=== PATIENT | female | born 1970 | race Caucasian/White ===

== ENCOUNTER 2016-09-19 07:34 | Emergency (ER) | payer BC ==
[~2016-09-19] VITALS: Ht 157.5 cm; Wt 112.9 kg
[~2016-09-19 07:34] MED LIST: CANA300T PO; GLYB5TAB3 PO; LISI10TA2 PO; METF10002 PO; PIOG30TA20 PO; SIMV10TA3 PO; SULF1TAB24 PO
[2016-09-19] MEDS ORDERED: IV NORMAL SALINE 1000ML BAG 1,000 ML IV SCH (08:04)
[2016-09-19 08:28] LABS: CREATININE 0.7 mg/dL (0.6-1.0); GFR 89.7; POTASSIUM 4.4 mmol/L (3.5-5.1)
[2016-09-19] MEDS ORDERED: ONDA4TAB10 SL (08:43)
--- NOTE | 2016-09-19 08:43 | PHYS DOC ---
Past Medical History Past Medical History: Asthma, Diabetes-Type II, High Cholesterol, Hypertension , Pancreatitis, Other Additional Past Medical Histor: neuropathy, HERPES SIMPLEX II Past Surgical History: Cholecystectomy, , Tubal ligation Additional Information: quit 2007 Alcohol Use: None Drug Use: None Adult General Chief Complaint Chief Complaint: NAUSEA/VOMITING/DIARRHA HPI HPI Patient is a 46 year old female who presents with nausea, vomiting, and diarrhea that started overnight. States has few episodes of nonbloody nonbilious emesis and a few episodes of watery, nonbloody diarrhea. She denies abdominal pain. She has dizziness with standing for the past week. She has not taken any of her blood pressure or diabetes medications over the past month. She plans to see her primary care doctor this week for this. She denies fever or chills, dysuria, cough, dyspnea, chest pain, diaphoresis, vision changes, numbness, tingling, weakness. Review of Systems Review of Systems Constitutional: Denies fever or chills [] Eyes: Denies change in visual acuity, redness, or eye pain [] HENT: Denies nasal congestion or sore throat [] Respiratory: Denies cough or shortness of breath [] Cardiovascular: No additional information not addressed in HPI [] GI: Denies abdominal pain, bloody stools [] : Denies dysuria or hematuria [] Musculoskeletal: Denies back pain or joint pain [] Integument: Denies rash or skin lesions [] Neurologic: Denies headache, focal weakness or sensory changes [] Endocrine: Denies polyuria or polydipsia [] Current Medications Current Medications Current Medications Medications (Trade) Dose Ordered Sig/Chana Start Time Stop Time Status Last Admin Dose Admin Meclizine HCl (Antivert) 12.5 mg 1X ONCE 09/19/16 08:45 09/19/16 08:46 09/19/16 08:20 12.5 MG Ondansetron HCl (Zofran) 4 mg 1X ONCE 09/19/16 08:45 09/19/16 08:46 09/19/16 08:18 4 MG Sodium Chloride (Iv Sodium Chloride 0.9% 1000ml Bag) 1,000 ml @ 1,000 mls/hr Q1H 09/19/16 08:04 09/19/16 09:03 09/19/16 08:17 1,000 MLS/HR Allergies Allergies Allergies Coded Allergies Type Severity Reaction Last Updated Verified aspirin Allergy Intermediate "STOMACH BLEEDS" 09/06/15 Yes iodine Allergy Intermediate 09/06/15 Yes Physical Exam Physical Exam Constitutional: Well developed, well nourished, no acute distress, non-toxic appearance. [] HENT: Normocephalic, atraumatic, bilateral external ears normal, oropharynx moist, nose normal. [] Eyes: PERRLA, EOMI. [] Neck: Normal range of motion, supple. [] Cardiovascular: Regular tachycardia [] Lungs & Thorax: Bilateral breath sounds clear to auscultation [] Abdomen: Bowel sounds normal, soft, no tenderness. [] Skin: Warm, dry, no erythema, no rash. [] Back: No tenderness, no CVA tenderness. [] Extremities: No tenderness, ROM intact, no edema. [] Neurologic: Alert and oriented X 3, normal motor function, normal sensory function, no focal deficits noted. [] Psychologic: Affect normal, judgement normal, mood normal. [] Current Patient Data Vital Signs Vital Signs Date Time Temp Pulse Resp B/P Pulse Ox O2 Delivery O2 Flow Rate FiO2 09/19/16 08:21 108 14 128/71 93 Room Air 09/19/16 07:48 98.7 98.7 Lab Values Laboratory Tests Test 09/19/16 08:05 Sodium Level 137mmol/L (136-145) Potassium Level 4.4mmol/L (3.5-5.1) Chloride Level 98mmol/L (98-107) Carbon Dioxide Level 25mmol/L (21-32) Anion Gap 14 (6-14) Blood Urea Nitrogen 19mg/dL (7-20) Creatinine 0.7mg/dL (0.6-1.0) Estimated GFR (Cockcroft-Gault) 89.7 Glucose Level 470mg/dL (70-99) H Calcium Level 9.0mg/dL (8.5-10.1) Laboratory Tests 09/19/16 08:05 Course & Med Decision Making Course & Med Decision Making Pertinent Labs and Imaging studies reviewed. (See chart for details) Laboratory evaluation is unremarkable. HR is improved with IVFs. She is feeling better after medications. Return precautions given. She understands and agrees with plan. Dragon Disclaimer Dragon Disclaimer This electronic medical record was generated, in whole or in part, using a voice recognition dictation system. Departure Departure Impression: Primary Impression: Nausea vomiting and diarrhea Additional Impression: Hyperglycemia due to type 2 diabetes mellitus Disposition: 01 HOME, SELF-CARE Condition: STABLE Referrals: LEXII MERCER MD (PCP) Patient Instructions: Nausea and Vomiting, [id number] Additional Instructions: Take zofran as needed for nausea. Follow up with your primary care doctor. Return for any concerns. Scripts Ondansetron (Zofran Odt)4 Mg Tab.rapdis1 Tab SL Q8HRS #10 TAB Prov:Willem GEORGE MD 09/19/16 Problem Qualifiers Additional Impression: Hyperglycemia due to type 2 diabetes mellitus Diabetes mellitus intermediate manager insulin use: without intermediate manager use Qualified Code : E11.65 - Type 2 diabetes mellitus with hyperglycemia Willem GEORGE MD Sep 19, 2016 08:43
[2016-09-19] MEDS ORDERED: ONDANSETRON PF 4 MG/2 ML VIAL. IV ONE (08:45)
[2016-09-19] MEDS ORDERED: MECLIZINE HCL 12.5 MG TABLET. PO ONE (08:45)
[2016-09-19 09:30] VITALS: BP 128/69
== END 2016-09-19 09:31 | disposition home or self-care (01) ==
LOC: ER 07:34
DX: R11.2 Nausea with vomiting, unspecified (principal); R19.7 Diarrhea, unspecified; E11.65 Type 2 diabetes mellitus with hyperglycemia; R42 Dizziness and giddiness; E11.40 Type 2 diabetes mellitus with diabetic neuropathy, unspecified; I10 Essential (primary) hypertension; E78.00 Pure hypercholesterolemia, unspecified; J45.909 Unspecified asthma, uncomplicated; Z87.19 Personal history of other diseases of the digestive system; Z90.710 Acquired absence of both cervix and uterus; Z90.49 Acquired absence of other specified parts of digestive tract; Z98.51 Tubal ligation status; Z88.6 Allergy status to analgesic agent; Z91.041 Radiographic dye allergy status
CPT/HCPCS: 36415; 80048; 96361; 96374; 99284; J2405; J7030; J8597

== ENCOUNTER 2020-10-10 13:46 | Emergency (ER) | payer BC, OTHER ==
[~2020-10-10] VITALS: Ht 157.5 cm; Wt 105.5 kg
[~2020-10-10 13:46] MED LIST changes: +LISI10TA16 PO; -LISI10TA2 PO; -METF10002 PO; +METF10007 PO; +ONDA4TAB10 SL; -PIOG30TA20 PO; +PIOG30TA41 PO; +SIMV10TA15 PO; -SIMV10TA3 PO
--- NOTE | 2020-10-10 15:59 | PHYS DOC ---
Past Medical History Past Medical History: Asthma, Diabetes-Type II, High Cholesterol, Hypertension, Pancreatitis, Other Additional Past Medical Histor: neuropathy, HERPES SIMPLEX II Past Surgical History: Cholecystectomy, , Tubal ligation Smoking Status: Former Smoker Alcohol Use: None Drug Use: None General Adult EDM: Chief Complaint: ASTHMA HPI: HPI: Patient is a 50 year old female who presented to ER due to trouble breathing with fever and chill. Patient had her second Covid vaccines shot 2 days ago, she started having the symptoms since yesterday. Patient denies any chest pain, no headache, no nausea vomiting. Patient has history of diabetic, hypertension, asthma. Patient had taken her home medication but wanted to check to make sure that she is okay. Review of Systems: Review of Systems: Constitutional: Denies fever or chills. [] Eyes: Denies change in visual acuity. [] HENT: Denies nasal congestion or sore throat. [] Respiratory: Positive for cough and trouble breathing. Cardiovascular: Denies chest pain or edema. [] GI: Denies abdominal pain, nausea, vomiting, bloody stools or diarrhea. [] : Denies dysuria. [] Musculoskeletal: Positive for back pain and joint pain. Integument: Denies rash. [] Neurologic: Denies headache, focal weakness or sensory changes. [] Endocrine: Denies polyuria or polydipsia. [] Lymphatic: Denies swollen glands. [] Psychiatric: Denies depression or anxiety. [] Heart Score: C/O Chest Pain: N/A Risk Factors: Risk Factors: DM, Current or recent (<one month) smoker, HTN, HLP, family history of CAD, obesity. Risk Scores: Score 0 - 3: 2.5% MACE over next 6 weeks - Discharge Home Score 4 - 6: 20.3% MACE over next 6 weeks - Admit for Clinical Observation Score 7 - 10: 72.7% MACE over next 6 weeks - Early Invasive Strategies Allergies: Allergies: Allergies Coded Allergies Type Severity Reaction Last Updated Verified aspirin Allergy Intermediate "STOMACH BLEEDS" 09/06/15 Yes iodine Allergy Intermediate 09/06/15 Yes Physical Exam: PE: Constitutional: Well developed, well nourished, no acute distress, non-toxic appearance. [] HENT: Normocephalic, atraumatic, bilateral external ears normal, oropharynx moist, no oral exudates, nose normal. [] Eyes: PERRLA, EOMI, conjunctiva normal, no discharge. [] Neck: Normal range of motion, no tenderness, supple, no stridor. [] Cardiovascular:Heart rate regular rhythm, no murmur [] Lungs & Thorax: Bilateral breath sounds clear to auscultation [] Abdomen: Bowel sounds normal, soft, no tenderness, no masses, no pulsatile masses. [] Skin: Warm, dry, no erythema, no rash. [] Back: No tenderness, no CVA tenderness. [] Extremities: No tenderness, no cyanosis, no clubbing, ROM intact, no edema. [] Neurologic: Alert and oriented X 3, normal motor function, normal sensory function, no focal deficits noted. [] Psychologic: Affect normal, judgement normal, mood normal. [] Current Patient Data: Vital Signs: Vital Signs Date Time Temp Pulse Resp B/P (MAP) Pulse Ox O2 Delivery O2 Flow Rate FiO2 10/10/20 15:03 98.2 108 20 128/79 (95) 97 Room Air 98.2 EKG: EKG: [] Radiology/Procedures: Radiology/Procedures: [][facility] [address] [place] [address] IMAGING REPORT Signed PATIENT: TENA HENRIQUEZ MACCOUNT: [id number] : 1970 LOCATION: ER AGE: 50 SEX: F EXAM STATUS: REG ER ORD. PHYSICIAN: JON MARTIN DO REASON: SOA 7 PROCEDURE: CHEST AP ONLY AP chest x-ray HISTORY: Shortness of breath. COMPARISON: Chest x-ray September 06, 2015. FINDINGS: Heart size normal. Mediastinal silhouette is normal. No pneumothorax, pulmonary opacities or pleural effusions. Slight elevation of the left diaphragm is stable. Bones are unremarkable. IMPRESSION: No acute process. Electronically signed by: Mani Orozco MD (10/10/2020 4:43 PM) [id number] DICTATED and SIGNED BY: MANI OROZCO MD DATE: 10/10/20 [id number] 0 Course & Med Decision Making: Course & Med Decision Making Pertinent Labs and Imaging studies reviewed. (See chart for details) Patient is a 50-year-old female who presented to ER due to body ache, chills, tr ouble breathing, cough after she had her 2nd Covid vaccine 2 days ago. Patient vital signs was normal in the ER, her chest x-ray was normal. Patient was given a breathing treatment in ER, she feel much better. Patient will be discharged home. Dragon Disclaimer: Dragon Disclaimer: This electronic medical record was generated, in whole or in part, using a voice recognition dictation system. Departure Departure Impression: Primary Impression: Viral syndrome Disposition: HOME / SELF CARE / HOMELESS Condition: IMPROVED Referrals: NO PCP (PCP) follow up with your family doctor as needed Patient Instructions: Viral Syndrome Additional Instructions: Thank you for visiting our Emergency Department. We appreciate you trusting us with your care. If any additional problems come up don't hesitate to return to visit us. Please follow up with your primary care provider so they can plan additional care if needed and know about the problem that you had. If symptoms worsen come back to the Emergency Department. Any concerning symptoms that start such as chest pain, shortness of air, weakness or numbness on one side of the body, running high fevers or any other concerning symptoms return to the ER. JON MARTIN DO Oct 10, 2020 15:59
[2020-10-10] MEDS ORDERED: IPRATRPIUM/ALBUTEROL 0.5/2.5MG 3 ML NEBU. NEB ONE (16:00)
--- NOTE | 2020-10-10 16:45 | RAD ---
AP chest x-ray HISTORY: Shortness of breath. COMPARISON: Chest x-ray September 06, 2015. FINDINGS: Heart size normal. Mediastinal silhouette is normal. No pneumothorax, pulmonary opacities o r pleural effusions. Slight elevation of the left diaphragm is stable. Bones are unremarkable. IMPRESSION: No acute process. Electronically signed by: Mani Orozco MD (10/10/2020 4:43 PM) [id number]
[2020-10-10 17:06] VITALS: BP 120/63
== END 2020-10-10 17:08 | disposition home or self-care (01) ==
LOC: ER 13:46
DX: B34.9 Viral infection, unspecified (principal); R50.9 Fever, unspecified; J45.909 Unspecified asthma, uncomplicated; E78.00 Pure hypercholesterolemia, unspecified; I10 Essential (primary) hypertension; K86.1 Other chronic pancreatitis; E11.40 Type 2 diabetes mellitus with diabetic neuropathy, unspecified; Z87.891 Personal history of nicotine dependence; Z90.49 Acquired absence of other specified parts of digestive tract; Z98.51 Tubal ligation status; Z98.890 Other specified postprocedural states; Z91.041 Radiographic dye allergy status; Z88.8 Allergy status to other drugs, medicaments and biological substances
CPT/HCPCS: 71045; 94640; 99283

== ENCOUNTER 2020-12-04 08:42 | Emergency (ER) | payer OTHER ==
[~2020-12-04] VITALS: Ht 157.5 cm; Wt 105.4 kg
[2020-12-04 10:30] LABS: BILIRUBIN,URINE NEGATIVE (NEG); CLARITY,URINE CLEAR; COLOR,URINE YELLOW; NITRITE,URINE NEGATIVE (NEG); PH,URINE 5.5 (<5.0-8.0); PROTEIN,URINE NEGATIVE (NEG-TRACE); UROBILINOGEN,URINE 0.2 mg/dL (0.2 mg/dL)
[2020-12-04] MEDS ORDERED: IV NORMAL SALINE 1000ML BAG 1,000 ML IV SCH (10:30)
[2020-12-04 10:54] LABS: BASO # 0.1 x10^3/uL (0.0-0.2); BASO % 1 % (0-3); EOS # 0.1 x10^3/uL (0.0-0.7); EOS % 1 % (0-3); HEMATOCRIT 41.3 % (36.0-47.0); HEMOGLOBIN 14.5 g/dL (12.0-15.5); LYMPH # 1.9 x10^3/uL (1.0-4.8); LYMPH % 24 % (24-48); MEAN CORPUSCULAR HEMOGLOBIN 32 pg (25-35); MEAN CORPUSCULAR HGB CONC 35 g/dL (31-37); MEAN CORPUSCULAR VOLUME 92 fL (79-100); MONO # 0.3 x10^3/uL (0.0-1.1); MONO % 4 % (0-9); NEUT # 5.6 x10^3/uL (1.8-7.7); NEUT % 70 % (31-73); PLATELET COUNT 289 x10^3/uL (140-400); RED BLOOD COUNT 4.48 x10^6/uL (3.50-5.40); RED CELL DISTRIBUTION WIDTH 12.8 % (11.5-14.5); WHITE BLOOD COUNT 8.1 x10^3/uL (4.0-11.0)
[2020-12-04 10:54] LABS: BACTERIA,URINE FEW /HPF (0-FEW); RBC,URINE 0 /HPF (0-2); WBC,URINE OCC /HPF (0-4)
--- NOTE | 2020-12-04 10:56 | RAD ---
INDICATION: Reason: vomiting / Spl. Instructions: / History: COMPARISON: October 10, 2020 FINDINGS: Single view of chest obtained. Cardiac silhouette is upper limits of normal in size. No definite focal airspace consolidation or pul monary edema. IMPRESSION: * No focal airspace consolidation or edema. Electronically signed by: Binh Millard MD (12/04/2020 10:53 AM) [id number]
[2020-12-04 11:03] LABS: CREATININE 0.7 mg/dL (0.6-1.0); GFR 88.2; POTASSIUM 3.9 mmol/L (3.5-5.1)
[2020-12-04 11:09] LABS: ALBUMIN 3.6 g/dL (3.4-5.0); TOTAL BILIRUBIN 0.7 mg/dL (0.2-1.0); TOTAL PROTEIN 7.2 g/dL (6.4-8.2)
--- NOTE | 2020-12-04 11:32 | PHYS DOC ---
Past Medical History Past Medical History: Asthma, Diabetes-Type II, High Cholesterol, Hypertension, Pancreatitis, Other Additional Past Medical Histor: neuropathy, HERPES SIMPLEX II Past Surgical History: Cholecystectomy, , Tubal ligation Smoking Status: Former Smoker Alcohol Use: Occasionally Drug Use: None General Adult EDM: Chief Complaint: NAUSEA/VOMITING/DIARRHEA HPI: HPI: Patient is a 50 year old female who presents with was read her grandkids over the weekend and they had a stomach bug with vomiting and diarrhea. She states that yesterday she started with some diarrhea and today she has had nausea and vomiting. She states she did have a slight temp at 100.3 this morning. She did not take any medication for this. She does not have a fever in the ED today. She denies abdominal pain, dizziness, headache, shortness of air, numbness and tingling, focal weakness, vision change, syncope, blood in her vomit or stool. She has a history of diabetes, cholecystectomy, high cholesterol, herpes, asthma, hypertension, pancreatitis. Review of Systems: Review of Systems: Constitutional: + Low-grade fever or chills. [] Eyes: Denies change in visual acuity. [] HENT: Denies nasal congestion or sore throat. [] Respiratory: Denies cough or shortness of breath. [] Cardiovascular: Denies chest pain or edema. [] GI: Denies abdominal pain, +nausea, +vomiting, denies bloody stools or +diarrhea. [] : Denies dysuria. [] Musculoskeletal: Denies back pain or joint pain. [] Integument: Denies rash. [] Neurologic: Denies headache, focal weakness or sensory changes. [] Endocrine: Denies polyuria or polydipsia. [] Lymphatic: Denies swollen glands. [] Psychiatric: Denies depression or anxiety. [] Heart Score: C/O Chest Pain: No Risk Factors: Risk Factors: DM, Current or recent (<one month) smoker, HTN, HLP, family history of CAD, obesity. Risk Scores: Score 0 - 3: 2.5% MACE over next 6 weeks - Discharge Home Score 4 - 6: 20.3% MACE over next 6 weeks - Admit for Clinical Observation Score 7 - 10: 72.7% MACE over next 6 weeks - Early Invasive Strategies Current Medications: Current Medications Medications (Trade) Dose Ordered Sig/Chana Start Time Stop Time Status Last Admin Dose Admin Sodium Chloride 1,000 ml @ 1,000 mls/hr Q1H 12/04/20 10:30 12/04/20 11:29 12/04/20 10:41 1,000 MLS/HR Allergies: Allergies: Allergies Coded Allergies Type Severity Reaction Last Updated Verified aspirin Allergy Intermediate "STOMACH BLEEDS" 09/06/15 Yes iodine Allergy Intermediate 09/06/15 Yes Physical Exam: PE: Constitutional: Well developed, well nourished, no acute distress, non-toxic appearance. [] HENT: Normocephalic, atraumatic, bilateral external ears normal, oropharynx moist, no oral exudates, nose normal. [] Eyes: PERRLA, EOMI, conjunctiva normal, no discharge. [] Neck: Normal range of motion, no tenderness, supple, no stridor. [] Cardiovascular:Heart rate regular rhythm, no murmur [] Lungs & Thorax: Bilateral breath sounds clear to auscultation [] Abdomen: Bowel sounds normal, soft, no tenderness, no masses, no pulsatile masses. [] Skin: Warm, dry, no erythema, no rash. [] Back: No tenderness, no CVA tenderness. [] Extremities: No tenderness, no cyanosis, no clubbing, ROM intact, no edema. [] Neurologic: Alert and oriented X 3, normal motor function, normal sensory function, no focal deficits noted. [] Psychologic: Affect normal, judgement normal, mood normal. Normal physical exam [] Current Patient Data: Labs: Laboratory Tests Test 12/04/20 09:24 12/04/20 10:35 Urine Collection Type Unknown Urine Color Yellow Urine Clarity Clear Urine pH 5.5 (<5.0-8.0) Urine Specific [place] >=1.030 (1.000-1.030) Urine Protein Negative mg/dL (NEG-TRACE) Urine Glucose (UA) >=1000 mg/dL (NEG) Urine Ketones (Stick) Trace mg/dL (NEG) Urine Blood Negative (NEG) Urine Nitrite Negative (NEG) Urine Bilirubin Negative (NEG) Urine Urobilinogen Dipstick 0.2 mg/dL (0.2 mg/dL) Urine Leukocyte Esterase Negative (NEG) Urine RBC 0 /HPF (0-2) Urine WBC Occ /HPF (0-4) Urine Squamous Epithelial Cells Mod /LPF Urine Bacteria Few /HPF (0-FEW) White Blood Count 8.1 x10^3/uL (4.0-11.0) Red Blood Count 4.48 x10^6/uL (3.50-5.40) Hemoglobin 14.5 g/dL (12.0-15.5) Hematocrit 41.3 % (36.0-47.0) Mean Corpuscular Volume 92 fL (79-100) Mean Corpuscular Hemoglobin 32 pg (25-35) Mean Corpuscular Hemoglobin Concent 35 g/dL (31-37) Red Cell Distribution Width 12.8 % (11.5-14.5) Platelet Count 289 x10^3/uL (140-400) Neutrophils (%) (Auto) 70 % (31-73) Lymphocytes (%) (Auto) 24 % (24-48) Monocytes (%) (Auto) 4 % (0-9) Eosinophils (%) (Auto) 1 % (0-3) Basophils (%) (Auto) 1 % (0-3) Neutrophils # (Auto) 5.6 x10^3/uL (1.8-7.7) Lymphocytes # (Auto) 1.9 x10^3/uL (1.0-4.8) Monocytes # (Auto) 0.3 x10^3/uL (0.0-1.1) Eosinophils # (Auto) 0.1 x10^3/uL (0.0-0.7) Basophils # (Auto) 0.1 x10^3/uL (0.0-0.2) Sodium Level 137 mmol/L (136-145) Potassium Level 3.9 mmol/L (3.5-5.1) Chloride Level 101 mmol/L (98-107) Carbon Dioxide Level 26 mmol/L (21-32) Anion Gap 10 (6-14) Blood Urea Nitrogen 17 mg/dL (7-20) Creatinine 0.7 mg/dL (0.6-1.0) Estimated GFR (Cockcroft-Gault) 88.2 BUN/Creatinine Ratio 24 (6-20) H Glucose Level 376 mg/dL (70-99) H Calcium Level 9.0 mg/dL (8.5-10.1) Total Bilirubin 0.7 mg/dL (0.2-1.0) Aspartate Amino Transferase (AST) 15 U/L (15-37) Alanine Aminotransferase (ALT) 31 U/L (14-59) Alkaline Phosphatase 98 U/L (46-116) Troponin I Quantitative < 0.017 ng/mL (0.000-0.055) Total Protein 7.2 g/dL (6.4-8.2) Albumin 3.6 g/dL (3.4-5.0) Albumin/Globulin Ratio 1.0 (1.0-1.7) Lipase 127 U/L (73-393) Laboratory Tests 12/04/20 10:35 Laboratory Tests 12/04/20 10:35 Vital Signs: Vital Signs Date Time Temp Pulse Resp B/P (MAP) Pulse Ox O2 Delivery O2 Flow Rate FiO2 12/04/20 09:23 98.7 90 20 140/84 (102) 94 Room Air 98.7 EKG: EK and read by Dr. Isaacs as sinus rhythm and no STEMI [] Radiology/Procedures: Radiology/Procedures: [] Impression: [facility] [address] [place], [place] [id number] IMAGING REPORT Signed PATIENT: TENA HENRIQUEZ MACCOUNT: [id number] : 1970 LOCATION: ER AGE: 50 SEX: F EXAM STATUS: REG ER ORD. PHYSICIAN: ADRY SORENSON APRN REASON: vomiting PROCEDURE: PORTABLE CHEST 1V INDICATION: Reason: vomiting / Spl. Instructions: / History: COMPARISON: October 10, 2020 FINDINGS: Single view of chest obtained. Cardiac silhouette is upper limits of normal in size. No definite focal airspace consolidation or pulmonary edema. IMPRESSION: * No focal airspace consolidation or edema. Electronically signed by: Sierra Stanton MD (12/04/2020 10:53 AM) [id number] DICTATED and SIGNED BY: SIERRA STANTON MD DATE: 12/04/20 [id number] 0 Course & Med Decision Making: Course & Med Decision Making Pertinent Labs and Imaging studies reviewed. (See chart for details) See HPI. Alert and oriented x4. Ambulatory with a steady gait. Speaks in full clear sentences. Skin pink warm and dry. No extremity edema. Abdomen is soft and nontender. Patient states she feels fine other than having the nausea and vomiting and some diarrhea. She states she is been taking all of her medications except for today because she has been vomiting. Blood work is u nremarkable. Chest x-ray shows no acute findings. EKG shows a sinus rhythm with no STEMI. Patient will be p.o. challenged. Patient states she is feeling much better and she is been successfully p.o. challenge. [] Dragon Disclaimer: Dragon Disclaimer: This electronic medical record was generated, in whole or in part, using a voice recognition dictation system. Departure Departure Impression: Primary Impression: Nausea vomiting and diarrhea Disposition: HOME / SELF CARE / HOMELESS Condition: STABLE Referrals: NO PCP (PCP) Patient Instructions: Nausea and Vomiting Additional Instructions: Follow-up with primary care provider if needed. If any symptoms worsen can always come back to the ED. Take medication as prescribed with food. Try to stay hydrated. Rest. Scripts Ondansetron (ONDANSETRON ODT) 4 Mg Tab.rapdis 1 TAB PO PRN Q6-8HRS, #16 TAB Prov: ADRY SORENSON APRN 12/04/20 ADRY SORENSON APRN Dec 04, 2020 11:32
[2020-12-04 11:59] VITALS: BP 127/74
[2020-12-04] MEDS ORDERED: ONDA4TAB12 PO (12:35)
--- NOTE | 2020-12-04 17:02 | EKG ---
[facility] [address] [place] [address] Test Date: 2020-12-04 Test Time: 10:25:29 Pat Name: TENA HENRIQUEZ Department: Room: Gender: F [employer]: : 1970 Requested By: ADRY SORENSON Order Number: [id number] Reading MD: Measurements Intervals [place] Rate: 87 P: 54 RI: 150 QRS: 17 QRSD: 72 T: 26 QT: 388 QTc: 467 Interpretive Statements SINUS RHYTHM NORMAL ECG RI6.02 No previous ECG available for comparison
== END 2020-12-04 12:56 | disposition home or self-care (01) ==
LOC: ER 08:42
DX: R11.2 Nausea with vomiting, unspecified (principal); R19.7 Diarrhea, unspecified; E11.40 Type 2 diabetes mellitus with diabetic neuropathy, unspecified; E78.00 Pure hypercholesterolemia, unspecified; J45.909 Unspecified asthma, uncomplicated; I10 Essential (primary) hypertension; Z87.891 Personal history of nicotine dependence; Z98.51 Tubal ligation status; Z90.49 Acquired absence of other specified parts of digestive tract; Z88.6 Allergy status to analgesic agent; Z88.8 Allergy status to other drugs, medicaments and biological substances
CPT/HCPCS: 36415; 71045; 80053; 81001; 83690; 84484; 85025; 93005; 96360; 99285; J7030

== ENCOUNTER 2021-02-27 14:20 | Emergency (ER) | payer OTHER ==
[~2021-02-27] VITALS: Ht 190.5 cm; Wt 105.4 kg
[~2021-02-27 14:20] MED LIST changes: +ONDA4TAB12 PO
[2021-02-27 14:30] VITALS: BP 170/83
[2021-02-27] MEDS ORDERED: GUAI473L15 PO (14:54)
[2021-02-27] MEDS ORDERED: PRED50TA PO (14:54)
--- NOTE | 2021-02-27 14:54 | ED.ADGEN ---
Past Medical History Past Medical History: Asthma, Diabetes-Type II, High Cholesterol, Hypertension, Pancreatitis, Other Additional Past Medical Histor: neuropathy, HERPES SIMPLEX II Past Surgical History: Cholecystectomy, , Tubal ligation Smoking Status: Former Smoker Alcohol Use: Occasionally Drug Use: None General Adult EDM: Chief Complaint: COUGH HPI: HPI: Patient is a 50 year old 50-year-old female coming in for cough and congestion. Patient states she has a history of asthma and had some wheezing. Had more difficulty breathing when she first woke up this morning has been using her inhalers have not been helping much today. Does not have a nebulizer at home. Patient states she shares a room with her grandson who was sent home from school for respiratory symptoms, he had a negative Covid test 2 days ago. Patient states she has been vaccinated for Covid. No GI complaints. Review of Systems: Review of Systems: All other systems within normal limits except for as noted in the HPI Allergies: Allergies: Allergies Coded Allergies Type Severity Reaction Last Updated Verified aspirin Allergy Intermediate "STOMACH BLEEDS" 09/06/15 Yes iodine Allergy Intermediate 09/06/15 Yes Physical Exam: PE: Constitutional: Well developed, well nourished, no acute distress, non-toxic appearance. [] HENT: Normocephalic, atraumatic, bilateral external ears normal, nose normal. [] Eyes: PERRLA, conjunctiva normal, no discharge. [] Neck: No rigidity, supple, no stridor. [] Cardiovascular: Regular rate and rhythm, brisk cap refill [] Lungs & Thorax: Non labored symmetric respirations, no tachypnea or respiratory distress [] Abdomen: Soft, nondistended. Skin: Warm, dry, no erythema, no rash. [] Back: Unremarkable Extremities: No deformities, range of motion grossly intact, no lower extremity edema [] Neurologic: Alert and oriented X 3, no focal deficits noted. [] Psychologic: Affect normal, judgement normal, mood normal. [] Current Patient Data: Labs: Laboratory Tests Test 02/27/21 14:50 Influenza Type A Antigen Negative (NEGATIVE) Influenza Type B Antigen Negative (NEGATIVE) Vital Signs: Vital Signs Date Time Temp Pulse Resp B/P (MAP) Pulse Ox O2 Delivery O2 Flow Rate FiO2 02/27/21 14:30 98.5 95 20 170/83 (91) 98 Room Air 98.5 EKG: EKG: [] Heart Score: C/O Chest Pain: No Risk Factors: Risk Factors: DM, Current or recent (<one month) smoker, HTN, HLP, family his tory of CAD, obesity. Risk Scores: Score 0 - 3: 2.5% MACE over next 6 weeks - Discharge Home Score 4 - 6: 20.3% MACE over next 6 weeks - Admit for Clinical Observation Score 7 - 10: 72.7% MACE over next 6 weeks - Early Invasive Strategies Radiology/Procedures: Radiology/Procedures: [facility] [address] [place] [address] IMAGING REPORT Signed PATIENT: TENA HENRIQUEZ MACCOUNT: [id number] : 1970 LOCATION: ER AGE: 50 SEX: F EXAM STATUS: DEP ER ORD. PHYSICIAN: CAITLIN RIVERS MD REASON: cough PROCEDURE: CHEST AP ONLY Exam: Chest one view INDICATION: Cough TECHNIQUE: Frontal view of the chest Comparisons: 12/04/2020 FINDINGS: The cardiomediastinal silhouette and pulmonary vessels are within normal limits. The lung and pleural spaces are clear. IMPRESSION: No acute cardiopulmonary process. Electronically signed by: Luis Paul MD (02/27/2021 4:30 PM) [facility] DICTATED and SIGNED BY: LUIS PAUL MD DATE: 02/27/21 [id number] [] Course & Med Decision Making: Course & Med Decision Making Pertinent Labs and Imaging studies reviewed. (See chart for details) [] Dragon Disclaimer: Dragon Disclaimer: This electronic medical record was generated, in whole or in part, using a voice recognition dictation system. Departure Departure Impression: Primary Impression: Cough Disposition: HOME / SELF CARE / HOMELESS Condition: STABLE Referrals: NO PCP (PCP) Additional Instructions: You have been tested for or diagnosed with COVID-19. It is an infection caused by a new type of coronavirus. COVID-19 will cause cold-like or mild flu symptoms in most. It can cause more severe symptoms like problems breathing in some. There is no treatment for COVID-19. The body will clear the infection over time. Self-care will help to ease discomfort. Steps to Take: Self-Care Rest as needed. Healthy habits may help you feel better. Steps include: Choose healthy foods including fruits and vegetables. Drink water throughout the day. Get plenty of sleep each night. If you smoke, try to quit. It may ease breathing. Avoid alcohol. Keep Others Healthy The virus can spread to others. Droplets are released every time you sneeze or cough. The droplets can get into the mouth, nose, or eyes of people near you and lead to infection. To lower the chances of spreading COVID-19 to others: Stay at home until your doctor has said it is safe to leave. If you tested positive this will mean staying isolated until both of the following are true: At least 7 days have passed since the start of illness. You are free of fever for at least 72 hours without the use of medicine. During this time: - Avoid public areas, events, or transportation. Do not return to work or school until your doctor has said it is safe to do so. - Call ahead if you need to go to a medical center. Let them know you may have COVID-19. It will help them guide you where to go. They may also ask you to wear a facemask when you come to the office. - If you call for emergency medical services, let them know you may have COVID- 19. While at home: - Try to avoid close contact with others. Stay about 6 feet away. - If possible, spend most of your time in a separate room from others. - Use a face mask if you will be in close contact with others such as sharing a room or vehicle. - Have someone wipe down common surfaces in the home. Use household junior graphic designer every day on areas like doorknobs, counters, or sinks. - Cough or sneeze into a tissue. Throw the tissue away right after use. If a tissue is not available, cough or sneeze into your elbow. - Wash your hands often. Wash them after sneezing or coughing. Use soap and water and wash for at least 20 seconds. Alcohol based hand area cleaner can be used if soap and water is not available. - Do not prepare food for others. Avoid sharing personal items like forks, spoons, or toothbrushes. - Avoid close contact with pets while you are sick. There is no evidence of the virus passing to pets. This is a safety step until more is known about this virus. Isolation can be frustrating. Social interaction can help. Keep in touch with friends and family through phone and tech options. You can still interact with others in your home, just keep a safe distance of about 6 feet. Follow-up: Your doctors office will check in with you to see if there are any changes in your health. You may be asked to keep track of symptoms to share with them. They will also let you know when you are clear to be in public again. Problems to Look Out For: Contact your doctor if your recovery is not going as you expect. Get emergency care if you have problems such as: - Trouble breathing - Nonstop chest pain or pressure - Changes in awareness, confusion, or problems waking - Lips or face have bluish color - Worsening of symptoms If you think you have an emergency, call for emergency medical services right away. [facility] Guaifenesin/Codeine Phosphate (GUAIFENESIN AC COUGH SYRUP) 473 Ml Liquid 5 ML PO PRN Q4HRS PRN for cough and congestion MDD 30 Milliliter(s) for 8 Days, #240 ML 0 Refills Prov: CAITLIN RIVERS MD 02/27/21 Prednisone (PREDNISONE) 50 Mg Tablet 1 TAB PO DAILY for steroid for 5 Days, #5 TAB Prov: CAITLIN RIVERS MD 02/27/21 CAITLIN RIVERS MD Feb 27, 2021 14:54
[2021-02-27 15:15] LABS: INFLUENZA A PATIENT NEGATIVE (NEGATIVE); INFLUENZA B PATIENT NEGATIVE (NEGATIVE)
--- NOTE | 2021-02-27 16:33 | RAD ---
Exam: Chest one view INDICATION: Cough TECHNIQUE: Frontal view of the chest Comparisons: 12/04/2020 FINDINGS: The cardiomediastinal silhouette and pulmonary vessels are within normal limits. The lung and pleural spaces are clear. IMPRESSION: No acute cardiopulmonary process. Electronically signed by: Luis Gunter MD (02/27/2021 4:30 PM) [facility]
--- NOTE | 2021-03-01 14:22 | NUR ---
IP: Informed pt of negative covid test. Pt verbalized understanding.
== END 2021-02-27 15:45 | disposition home or self-care (01) ==
LOC: ER 14:20
DX: R05 Cough (principal); R09.81 Nasal congestion; J45.909 Unspecified asthma, uncomplicated; E11.9 Type 2 diabetes mellitus without complications; E78.00 Pure hypercholesterolemia, unspecified; I10 Essential (primary) hypertension; Z20.822 Contact with and (suspected) exposure to COVID-19; Z88.6 Allergy status to analgesic agent; Z88.8 Allergy status to other drugs, medicaments and biological substances
CPT/HCPCS: 71045; 87804; 99284; U0003; U0005

== ENCOUNTER 2021-08-23 17:50 | Emergency (ER) | payer OTHER, BC ==
[~2021-08-23] VITALS: Ht 157.5 cm; Wt 106.9 kg
[~2021-08-23 17:50] MED LIST changes: +ACYC-12 PO; +ATOR20TA58 PO; +CETI10TA16 PO; +EMPA25TA3 PO; +FAMO20TA5 PO; +FLUT10.6 IH; +GUAI473L15 PO; +IBUP-1060 PO; +INSU100V6 SQ; +LAMO100T37 PO; +LISI2.5T12 PO; +PRED50TA PO; +PROVENTIL HFA6.7 G2 INH; +TOPI100T8 PO; +TRAZ-118 PO
[2021-08-23 18:37] LABS: BASO % 1 % (0-3); EOS # 0.2 x10^3/uL (0.0-0.7); EOS % 3 % (0-3); HEMATOCRIT 38.3 % (36.0-47.0); HEMOGLOBIN 13.4 g/dL (12.0-15.5); LYMPH # 2.3 x10^3/uL (1.0-4.8); LYMPH % 38 % (24-48); MEAN CORPUSCULAR HEMOGLOBIN 32 pg (25-35); MEAN CORPUSCULAR HGB CONC 35 g/dL (31-37); MEAN CORPUSCULAR VOLUME 91 fL (79-100); MONO # 0.5 x10^3/uL (0.0-1.1); MONO % 8 % (0-9); NEUT # 3.1 x10^3/uL (1.8-7.7); NEUT % 51 % (31-73); PLATELET COUNT 330 x10^3/uL (140-400); RED BLOOD COUNT 4.23 x10^6/uL (3.50-5.40); RED CELL DISTRIBUTION WIDTH 12.6 % (11.5-14.5); WHITE BLOOD COUNT 6.1 x10^3/uL (4.0-11.0)
--- NOTE | 2021-08-23 18:46 | PHYS DOC ---
Past Medical History Past Medical History: Asthma, Diabetes-Type II, High Cholesterol, Hypertension, Pancreatitis, Other Additional Past Medical Histor: neuropathy, HERPES SIMPLEX II, PTSD, bipolar, b orderline personality disord Past Surgical History: Cholecystectomy, Smoking Status: Never Smoker Alcohol Use: None Drug Use: None General Adult EDM: Chief Complaint: CHEST PAIN HPI: HPI: This patient is a 51-year-old female who presents with symptoms of "panic attack." She reports that she had some sharp chest pain rating across her entire chest. This began 2 or 3 hours prior to arrival. The pain is admittedly already improved. The pain is described as sharp, constant, does not radiate. She denies dyspnea, dizziness, diaphoresis. She denies abdominal pain, nausea, vomiting. She has lower extremity pain or swelling. She denies exertional chest pain. She denies syncope or near syncope. She reports that she had similar symptoms in the past with panic attacks and anxiety. At the end of her extensive ED work-up, she reports that she would like a work note to be excused for work tonight, she works at [employer]. She has previously seen cardiology for these exact same types of pains, she has had unremarkable outpatient work-up, per her report. Review of Systems: Review of Systems: Constitutional: Denies fever or chills. [] HENT: Denies nasal congestion or sore throat. [] Respiratory: Denies cough or shortness of breath. [] Cardiovascular: Atypical chest pain. No peripheral edema. No syncope. GI: Denies abdominal pain, nausea, vomiting Musculoskeletal: Denies back pain or joint pain. [] Integument: Denies rash. [] Neurologic: Denies headache, focal weakness or sensory changes. [] Psychiatric: Anxiety and reported history of panic attacks. Denies current HI or SI symptoms. Heart Score: C/O Chest Pain: Yes HEART Score for Chest Pain: HEART Score for Chest Pain Response (Comments) Value History Slighlty/Non-Suspicious 0 ECG Normal 0 Age >45 - < 65 1 Risk Factors 1 or 2 Risk Factors 1 Total 2 Risk Factors: Risk Factors: DM, Current or recent (<one month) smoker, HTN, HLP, family history of CAD, obesity. Risk Scores: Score 0 - 3: 2.5% MACE over next 6 weeks - Discharge Home Score 4 - 6: 20.3% MACE over next 6 weeks - Admit for Clinical Observation Score 7 - 10: 72.7% MACE over next 6 weeks - Early Invasive Strategies Allergies: Allergies: Allergies Coded Allergies Type Severity Reaction Last Updated Verified aspirin Allergy Intermediate "STOMACH BLEEDS" 08/23/21 Yes iodine Allergy Intermediate rash, itching 08/23/21 Yes Physical Exam: PE: Constitutional: Well developed, well nourished, no acute distress, non-toxic appearance. [] HENT: Normocephalic, atraumatic Eyes: Conjunctiva normal, no discharge. [] Neck: Normal range of motion, no tenderness, supple, no stridor. Trachea midline, no JVD. Cardiovascular:Heart rate regular rhythm, was 2 radial and +2 posterior tibial pulses bilaterally. Lungs & Thorax: Bilateral breath sounds clear to auscultation, no rales, rhonchi or wheezes. No stridor. No evidence of distress Abdomen: Abdomen is soft, nondistended, nontender to palpation. Skin: Warm, dry, no erythema, no rash. [] Back: No tenderness, no CVA tenderness. [] Extremities: No tenderness, no cyanosis, no clubbing, ROM intact, no edema. No calf tenderness. Neurologic: Alert and oriented X 3, normal motor function, normal sensory function, no focal deficits noted. [] Psychologic: Affect normal, judgement normal, mood normal. Smiling, jovial. Denies SI or HI. Current Patient Data: Vital Signs: Vital Signs Date Time Temp Pulse Resp B/P (MAP) Pulse Ox O2 Delivery O2 Flow Rate FiO2 08/23/21 18:30 68 16 127/60 (82) 98 Room Air 08/23/21 18:00 98.8 98.8 EKG: EKG: EKG is interpreted at 1800 Rhythm is sinus Rate is 81 bpm [place] is normal No STEMI, no acute ischemia EKG is interpreted at 1917 Rhythm is sinus Rate is 75 bpm [place] is normal No STEMI, no acute ischemia Radiology/Procedures: Radiology/Procedures: IMAGING REPORT Signed PATIENT: TENA HENRIQUEZ MACCOUNT: [id number] : 1970 LOCATION: ER AGE: 51 SEX: F EXAM STATUS: REG ER ORD. PHYSICIAN: JUAN DAVID ARROYO DO REASON: chest pain PROCEDURE: PORTABLE CHEST 1V Single view chest dated 08/23/2021 6:59 PM: COMPARISON: 02/27/2021 Clinical Indication: Chest pain. Findings: Single upright portable exam of the chest was performed. Heart size and mediastinal contours are within normal limits. Lungs are clear. No consolidation or pleural effusion. No pneumothorax. IMPRESSION: No acute radiographic abnormality. Electronically signed by: Tor Dougherty MD (08/23/2021 7:00 PM) [facility] DICTATED and SIGNED BY: TOR DOUGHERTY MD DATE: 08/23/21 [id number] Course & Med Decision Making: Course & Med Decision Making Pertinent Labs and Imaging studies reviewed. (See chart for details) The patient declined pain medication here. She reports no severe pain and admits that the pain is essentially resolved at this time. Serial cardiac enzymes are negative. EKG is nonischemic. Emergency department work-up is unremarkable for any acute life-threatening process. I have discussed all the findings, differential diagnosis and plan of care with her. She is comfortable with the plan for discharge home. She requested a work excuse for tonight. She is given an excuse for tonight only. I told her to contact her PCP for follow- up. Return precautions are given. If symptoms persist, she may need to see outpatient cardiology again. Tammy Disclaimer: Tammy Disclaimer: This electronic medical record was generated, in whole or in part, using a voice recognition dictation system. Departure Departure Impression: Primary Impression: Atypical chest pain Additional Impression: Anxiety Disposition: 01 HOME / SELF CARE / HOMELESS Condition: STABLE Referrals: HECTOR ERWIN MD (PCP) Patient Instructions: Anxiety and Panic Attacks, Chest Pain (Nonspecific) Additional Instructions: Return to the ER for more severe pain, shortness of breath, coughing up blood, temperature 100.4 or higher, severe dizziness, vomiting, weakness or any other concerns. Please follow-up with your primary care physician and outpatient cardiology services if your symptoms persist. JUAN DAVID ARROYO DO Aug 23, 2021 18:46
[2021-08-23 18:53] LABS: CALCIUM 8.7 mg/dL (8.5-10.1); CREATININE 0.6 mg/dL (0.6-1.0); POTASSIUM 4.2 mmol/L (3.5-5.1)
[2021-08-23 18:59] LABS: ALBUMIN 3.3 g/dL (3.4-5.0); ALBUMIN/GLOBULIN RATIO 0.9 (1.0-1.7); MAGNESIUM 1.9 mg/dL (1.8-2.4); TOTAL BILIRUBIN 0.3 mg/dL (0.2-1.0); TOTAL PROTEIN 6.8 g/dL (6.4-8.2)
--- NOTE | 2021-08-23 19:02 | RAD ---
Single view chest dated 08/23/2021 6:59 PM: COMPARISON: 02/27/2021 Clinical Indication: Chest pain. Findings: Single upright portable exam of the chest was performed. Heart size and mediastinal contours are with in normal limits. Lungs are clear. No consolidation or pleural effusion. No pneumothorax. IMPRESSION: No acute radiographic abnormality. Electronically signed by: Tor Dougherty MD (08/23/2021 7:00 PM) ZHANG
[2021-08-23 22:31] VITALS: BP 105/54
--- NOTE | 2021-08-24 05:15 | EKG ---
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
--- NOTE | 2021-08-24 07:21 | EKG ---
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
== END 2021-08-23 22:31 | disposition home or self-care (01) ==
LOC: ER 17:50
DX: R07.89 Other chest pain (principal); F41.9 Anxiety disorder, unspecified; J45.909 Unspecified asthma, uncomplicated; E11.40 Type 2 diabetes mellitus with diabetic neuropathy, unspecified; E78.00 Pure hypercholesterolemia, unspecified; I10 Essential (primary) hypertension; F43.10 Post-traumatic stress disorder, unspecified; F31.9 Bipolar disorder, unspecified
CPT/HCPCS: 36415; 71045; 80053; 83690; 83735; 83880; 84484; 85025; 85379; 93005; 99285-25

== ENCOUNTER 2021-11-09 17:16 | Emergency (ER) | payer OTHER, BC ==
[~2021-11-09] VITALS: Ht 157.5 cm; Wt 104.0 kg
--- NOTE | 2021-11-09 17:39 | PHYS DOC ---
Past Medical History Past Medical History: Asthma, Diabetes-Type II, High Cholesterol, Hypertension, Pancreatitis, Other Additional Past Medical Histor: neuropathy, HERPES SIMPLEX II, PTSD, bipolar, b orderline personality disord Past Surgical History: Cholecystectomy, Smoking Status: Never Smoker Alcohol Use: Occasionally Drug Use: None General Adult EDM: Chief Complaint: CHEST PAIN HPI: HPI: Patient is a 51 year old female with history of diabetes type 2, hypertension, high cholesterol, presenting to the ED today complaining of 8 out of 10 sharp intermittent left sided chest pain, symptoms began a couple minutes prior to coming to the ED while she was getting ready to go to work at [employer]. Patient denies anything specifically exacerbating or relieving her pain. She states in itially the pain was 10 out of 10 but now has come down to 8 out of 10. She states she has had similar pain before and was worked up but nothing acute was found. She states the pain was attributed to stress Review of Systems: Review of Systems: Constitutional: Denies fever or chills. [] Eyes: Denies change in visual acuity. [] HENT: Denies nasal congestion or sore throat. [] Respiratory: Denies cough or shortness of breath. [] Cardiovascular: Reports left-sided chest pain GI: Denies abdominal pain, nausea, vomiting, bloody stools or diarrhea. [] : Denies dysuria. [] Musculoskeletal: Denies back pain or joint pain. [] Integument: Denies rash. [] Neurologic: Denies headache, focal weakness or sensory changes. [] [] Psychiatric: Denies depression or anxiety. [] Heart Score: C/O Chest Pain: Yes HEART Score for Chest Pain: HEART Score for Chest Pain Response (Comments) Value History Slighlty/Non-Suspicious 0 ECG Normal 0 Age >45 - < 65 1 Risk Factors >3 Risk Factors or Hx CAD 2 Troponin < Normal Limit 0 Total 3 Risk Factors: Risk Factors: DM, Current or recent (<one month) smoker, HTN, HLP, family history of CAD, obesity. Risk Scores: Score 0 - 3: 2.5% MACE over next 6 weeks - Discharge Home Score 4 - 6: 20.3% MACE over next 6 weeks - Admit for Clinical Observation Score 7 - 10: 72.7% MACE over next 6 weeks - Early Invasive Strategies Current Medications: Current Medications Medications (Trade) Dose Ordered Sig/Chana Start Time Stop Time Status Last Admin Dose Admin Aspirin (Red Aspirin) 325 mg 1X ONCE 11/09/21 17:45 11/09/21 17:46 UNV Morphine Sulfate (Morphine Sulfate) 4 mg PRN Q15MIN PRN 11/09/21 17:45 11/10/21 17:44 UNV Nitroglycerin (Nitrostat) 0.4 mg PRN Q5MIN PRN 11/09/21 17:45 11/10/21 17:44 UNV Allergies: Allergies: Allergies Coded Allergies Type Severity Reaction Last Updated Verified aspirin Allergy Intermediate "STOMACH BLEEDS" 08/23/21 Yes iodine Allergy Intermediate rash, itching 08/23/21 Yes Physical Exam: PE: Constitutional: Well developed, well nourished, no acute distress, non-toxic appearance. [] HENT: Normocephalic, atraumatic, bilateral external ears normal, oropharynx moist, no oral exudates, nose normal. [] Eyes: PERRLA, EOMI, conjunctiva normal, no discharge. [] Neck: Normal range of motion, no tenderness, supple, no stridor. [] Cardiovascular:Heart rate regular rhythm, no murmur [] Lungs & Thorax: Bilateral breath sounds clear to auscultation [] Abdomen: Bowel sounds normal, soft, no tenderness, no masses, no pulsatile masses. [] Skin: Warm, dry, no erythema, no rash. [] Back: No tenderness, no CVA tenderness. [] Extremities: No tenderness, no cyanosis, no clubbing, ROM intact, no edema. [] Neurologic: Alert and oriented X 3, normal motor function, normal sensory function, no focal deficits noted. [] Psychologic: Affect normal, judgement normal, mood normal. [] EKG: EK interpreted by Dr. Castellon sinus rhythm heart rate 87 no STEMI [] [address] Wayne sinus rhythm heart rate 68 no STEMI [] Radiology/Procedures: Radiology/Procedures: []PROCEDURE: PORTABLE CHEST 1V XR CHEST 1V Clinical History: Reason: chest pain / Spl. Instructions: / History: Technique: AP view of the chest was obtained at 11/09/2021 6:22 PM. Comparison: August 23, 2021. Findings: The cardiomediastinal silhouette is normal. The pulmonary vasculature is normal. A few linear opacities in left lung base as seen previously and could be discoid atelectasis or scar. Impression: Stable appearance of the chest. Electronically signed by: Lynsey Rodriguez III, MD (11/09/2021 6:33 PM) [facility] DICTATED and SIGNED BY: LYNSEY RODRIGUEZ III, MD DATE: 11/09/211831 Course & Med Decision Making: Course & Med Decision Making Pertinent Labs and Imaging studies reviewed. (See chart for details) This a 51-year-old female patient presented to the ED today with left-sided chest pain that began while getting ready for work. 2 EKGs were done, serial troponins were done, chest x-ray, CBC CMP with no acute findings. Patient was discharged to home. Follow-up with PCP and restaurant inspector in the course of this week. Provided return precautions. Dragon Disclaimer: Dragon Disclaimer: This electronic medical record was generated, in whole or in part, using a voice recognition dictation system. Departure Departure Impression: Primary Impression: Atypical chest pain Disposition: 01 HOME / SELF CARE / HOMELESS Condition: STABLE Referrals: HECTOR ERWIN MD (PCP) follow up in the course of this week [address] L[address] MD follow up in the course of this week Patient Instructions: Chest Pain Observation Additional Instructions: You were evaluated in the emergency room, your cardiac work-up is negative. Please follow-up with your primary care doctor as well as the provided restaurant inspector in the course of this week JOSUE MANCERA APRN November 09, 2021 17:39
[2021-11-09] MEDS ORDERED: NITROGLYCERIN SUBLINGUAL 0.4 MG BOTTLE OF 25. SL PRN (17:45)
[2021-11-09] MEDS ORDERED: MORPHINE SULFATE 4 MG/ML INJ. IV/SQ PRN (17:45)
[2021-11-09] MEDS ORDERED: ASPIRIN 325 MG TABLET PO ONE (17:45)
--- NOTE | 2021-11-09 18:35 | RAD ---
XR CHEST 1V Clinical History: Reason: chest pain / Spl. Instructions: / History: Technique: AP view of the chest was obtained at 11/09/2021 6:22 PM. Comparison: August 23, 2021. Findings: The cardiomediastinal silhouette is normal. The pulmonary vasculature is normal. A few linear opaciti es in left lung base as seen previously and could be discoid atelectasis or scar. Impression: Stable appearance of the chest. Electronically signed by: Clifford Blackwell III, MD (11/09/2021 6:33 PM) [facility]
[2021-11-09 18:40] LABS: BASO # 0.1 x10^3/uL (0.0-0.2); BASO % 1 % (0-3); EOS # 0.2 x10^3/uL (0.0-0.7); EOS % 3 % (0-3); HEMATOCRIT 38.9 % (36.0-47.0); HEMOGLOBIN 13.5 g/dL (12.0-15.5); LYMPH % 26 % (24-48); MEAN CORPUSCULAR HEMOGLOBIN 32 pg (25-35); MEAN CORPUSCULAR HGB CONC 35 g/dL (31-37); MEAN CORPUSCULAR VOLUME 93 fL (79-100); MONO # 0.5 x10^3/uL (0.0-1.1); MONO % 6 % (0-9); NEUT # 4.9 x10^3/uL (1.8-7.7); NEUT % 64 % (31-73); PLATELET COUNT 315 x10^3/uL (140-400); RED CELL DISTRIBUTION WIDTH 13.3 % (11.5-14.5); WHITE BLOOD COUNT 7.7 x10^3/uL (4.0-11.0)
[2021-11-09 18:58] LABS: CALCIUM 8.7 mg/dL (8.5-10.1); CREATININE 0.7 mg/dL (0.6-1.0); GFR 87.9
[2021-11-09 19:03] LABS: ALBUMIN 3.5 g/dL (3.4-5.0); ALBUMIN/GLOBULIN RATIO 0.9 (1.0-1.7); MAGNESIUM 2.1 mg/dL (1.8-2.4); TOTAL BILIRUBIN 0.7 mg/dL (0.2-1.0); TOTAL PROTEIN 7.2 g/dL (6.4-8.2)
[2021-11-09 21:45] VITALS: BP 107/66
--- NOTE | 2021-11-10 07:18 | EKG ---
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
--- NOTE | 2021-11-10 07:22 | EKG ---
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
--- NOTE | 2021-11-11 16:20 | EKG ---
[facility] [address] [place] [address] Test Date: 2021-11-09 Test Time: 17:27:13 Pat Name: TENA HENRIQUEZ Department: Room: Gender: F Shot Peening Operator: [place] : 1970 Requested By: JOSUE MANCERA Order Number: [id number] Reading MD: Aj Echevarria Measurements Intervals [place] Rate: 87 P: 49 [place]: 146 QRS: 21 QRSD: 72 T: 33 QT: 402 QTc: 484 Interpretive Statements SINUS RHYTHM PROLONGED QT Electronically Signed On 11-12-2021 10:30:04 CDT by Aj Echevarria
== END 2021-11-09 22:00 | disposition home or self-care (01) ==
LOC: ER 17:16
DX: R07.89 Other chest pain (principal); I10 Essential (primary) hypertension; E78.00 Pure hypercholesterolemia, unspecified; J45.909 Unspecified asthma, uncomplicated; E11.40 Type 2 diabetes mellitus with diabetic neuropathy, unspecified; F31.9 Bipolar disorder, unspecified; Z88.6 Allergy status to analgesic agent; Z88.8 Allergy status to other drugs, medicaments and biological substances
CPT/HCPCS: 36415; 71045; 80053; 83735; 83880; 84443; 84484; 85025; 93005; 96374; 99285; J2270